=== PATIENT | male | born 1965 | race Two or more races ===

== ENCOUNTER 2017-09-28 08:37 | Day surgery (SDC) | payer OTHER ==
[2017-09-27 08:47] VITALS: BMI 25.8
[~2017-09-28 08:37] MED LIST: DEXAMETHASONE SOD PHOSPHATE 10 MG/ML 1 ML VIAL IV ONE; DEXAMETHASONE SOD PHOSPHATE 4 MG/ML 1 ML VIAL IV ONE; FAMOTIDINE 20 MG/2 ML VIAL IV ONE; HYDROmorphone 0.5 MG/0.5 ML SYRINGE IVP PRN; LACTATED RINGERS 1,000 ML IV SCH; LIDOCAINE 1% 20 ML VIAL (10MG/ML) FOR IV START INTRADERMA PRN; MIDAZOLAM 2 MG/2 ML VIAL IV PRN; ONDANSETRON 4 MG/2 ML VIAL IVP ONE; Pre Op ABX Message 1 EACH MISC MISCELLANE ONE; SCOPOLAMINE 1.5MG/72HR PATCH TRANSDERM ONE
[2017-09-28] MEDS ORDERED: LIDOCAINE 1% INJ 10MG/ML (20 ML MDV) ONE (10:49)
[2017-09-28] MEDS ORDERED: fentaNYL (PF) 50 MCG/ML 2 ML AMP ONE ×2 (10:49)
[2017-09-28] MEDS ORDERED: MIDAZOLAM 2 MG/2 ML VIAL ONE (10:49)
[2017-09-28] MEDS ORDERED: PROPOFOL 10 MG/ML 20 ML VIAL IV ONE (10:49)
[2017-09-28] MEDS ORDERED: SUCCINYLCHOLINE CHLORIDE 100 MG/5 ML SYR IV ONE (10:49)
[2017-09-28] MEDS ORDERED: DEXAMETHASONE SOD PHOS (MDV) 100 MG/10 ML VIAL ONE (10:49)
--- NOTE | 2017-09-28 11:36 | P.OP ---
Date of Procedure: 09/28/17 Preoperative Diagnosis: Right oral pharyngeal mass Cough Dysphasia Tobacco abuse COPD Postoperative Diagnosis: Same Procedure(s) Performed: Triple endoscopy with biopsy of a right oral pharyngeal mass Anesthesia: JUANA Surgeon: Joe Garcia Estimated Blood Loss (ml): 5 Pathology: other (Right oral pharyngeal mass) Condition: stable Disposition: PACU Indications for Procedure: This patient presents to the office with throat issues. At the time of presentation he tells me that his dysphagia has resolved but has returned more recently. He has throat irritation is a chronic cough intermittent dysphagia and a mass found on the right throat on the right anterior pillar. Triple endoscopy and biopsy was recommended us is problems with persistent. All risks , benefits, and alternative therapies were discussed. Consent was obtained and all questions were answered. Operative Findings: Patient had a mass of the right anterior pillar. Is clear evidence of COPD. Patient did not show any evidence of esophageal abnormalities. Description of Procedure: This patient was taken to the operative room and placed in the supine position. A general inhalation anesthetic was administered to the patient by mask and subsequently intubated with an [employer] tube. A tooth guard was placed and a Jako laryngoscope was placed into the patient's mouth with care to avoid any trauma to the lips teeth gums or tongue. The base of tongue, vallecula, epiglottis, postcricoid space, piriform sinus, lateral pharynx and hypopharynx, true and false cords, ventricle, were inspected and great detail. The scope was placed on a Lewy. The lesion was biopsied. This was located on the right anterior pillar. Bleeding stopped spontaneously. A bronchoscope was then inserted into the lungs and all 12 segments of the lungs were evaluated with the laparoscope to the extent of visualization. There is no signs of any endobronchial lesions noted. The bronchoscope was then removed and the Jako laryngoscope and fluid was removed. Tooth guard was kept in place. An esophagoscope was then inserted into the patient's mouth and we extended the scope into the right piriform sinus into the esophagus. We passed the rigid esophagoscope into the esophagus to the lower esophageal sphincter and then in retrograde fashion evaluated the esophagus by pulling back to the upper esophageal sphincter. The entire length of the esophagus was evaluated directly. The patient tolerated this procedure well. Follow-up will be in the office in 1 week. Voice rest was not recommended.
[2017-09-28 11:53] VITALS: TEMP 97.1
[2017-09-28 12:37] VITALS: RESP 16
[2017-09-28 13:08] VITALS: BP 95/61; PULSE 68
== END 2017-09-28 13:09 | disposition home or self-care (01) ==
LOC: OR 08:37
PROVIDERS: ATTEND Otolaryngology
DX: D10.1 Benign neoplasm of tongue (principal); J44.9 Chronic obstructive pulmonary disease, unspecified; F17.200 Nicotine dependence, unspecified, uncomplicated; Z88.8 Allergy status to other drugs, medicaments and biological substances; Z79.1 Long term (current) use of non-steroidal anti-inflammatories (NSAID); Z79.899 Other long term (current) drug therapy
CPT/HCPCS: 88305; 31576; 31622; 43191; J2250; J1100 ×2; J2405; J2001; J3010; J0330; J2704